=== PATIENT | female | born 2000 | race Caucasian/White ===

== ENCOUNTER 2024-07-11 13:17 | Emergency (ER) | payer OTHER, BC, SELFPAY ==
[2024-07-11 13:22] VITALS: BP 141/90
[2024-07-11 15:07] VITALS: BP 133/74; BMI 29.0
--- NOTE | 2024-07-11 15:40 | EDRN ---
Sylvester MORENO in room w /pt at this time.
--- NOTE | 2024-07-11 15:43 | ED.MUSCINJ ---
HPI-Injury
General
Chief Complaint: Musculo-Skeletal Complaint
Source: patient
Exam Limitations: none
Time Seen by Provider: 07/11/24 15:36
Nursing documentation reviewed up to this point in time: agreed with
History of Present Illness-Injury
Is this injury a work related problem?: No
Is pt an associate of [facility]?: No
Initial Injury comments:
Injured knee in martial arts. Feels that knee dislocated. Complains of pain to right knee. Injury occurred just [employer]
Past History
Past History
ED Past Medical History: None
Review of Systems
Review of Systems
Allergies reviewed?: Yes
All Other Systems: ROS reviewed and negative except as documented in HPI and ROS
Constitutional: Reports no symptoms
Musculoskeletal: Reports joint pain (pain to right knee)
Skin: Reports no symptoms
Neurological: Reports no symptoms
Psychiatric: Reports no symptoms
Musculoskeletal Injury Exam
Musculoskeletal Injury Exam
Right Knee:
Pain with Movement?: Moderate
Tender to palpation?: Moderate
Soft tissue swelling?: Moderate
External deformity and angulation?: None
Joint effusion?: Moderate
Contusion?: None
Crepitus with movement?: No
Joint instability?: No
Malalignment/deformity?: No
Range of motion: Limited
Distal skin color and temperature: normal-warm & good color
Capillary Refill: normal
Normal distal neurovascular exam?: Yes
Peripheral Pulses: posterior tibial (right): 3+ and dorsalis pedis (right): 3+
Phy Exam
General Physical Exam
General Presentation: well appearing and no apparent distress
General age: appears stated age
General Skin: warm and dry
General Habitus: normal
General Mental: alert
Musculoskeletal Exam
Musculoskeletal Exam: neuro vasc intact
Skin Exam
Skin Exam: normal color, warm/dry and no rash
Psychiatric Exam
Psychiatric Exam: normal mood/affect
Injury Course
Orders/Labs/Results
Orders:
Orders
07/11/24 13:26
CR Knee- Right 4 Or More View* Urgent
Comment:
Reason For Exam: injury
*Radiology
Radiology exam reviewed: radiology read reviewed
*Pulse Oximetry
Patient hypoxic: no
*Critical Care Note
Total Time (30-74mins, 75-104mins- exclusive of procedures): Not Applicable
ED Attending Note
-
Portions of this chart may have been created with voice recognition software.� Occasional wrong word or��sound alike� substitutions may have occurred due to the inherent limitations of voice recognition software.
Discharge Plan
Departure
Referrals:
Zahra Guerra DO [Family Provider] -
Interventions
Interventions:
*Risk Screen - Suicide Last Done: 07/11/24 13:22
*General Assessment Last Done: 07/11/24 13:22
*Neglect/Abuse Screening Last Done: 07/11/24 13:22
*ED COVID-19 Vaccine History Last Done: 07/11/24 15:10
ED-Musculoskeletal Assessment Last Done: 07/11/24 15:10
Discharge Date and Time
Print Language: SOMALI
== END 2024-07-11 16:03 | disposition home or self-care (01) ==
LOC: EMR 13:17
PROVIDERS: EMERGENCY PHYSICIAN Emergency Medicine; FAMILY PHYSICIAN Family Medicine
DX: R55 Syncope and collapse (principal); S89.91XA Unspecified injury of right lower leg, initial encounter; M25.461 Effusion, right knee; M25.561 Pain in right knee; Y93.75 Activity, martial arts
CPT/HCPCS: 99283; 29505; 73564